=== PATIENT | female | born 1985 | race African-American/Black ===

== ENCOUNTER 2020-01-03 10:11 | Emergency (ER) | payer OTHER ==
[~2020-01-03] VITALS: Ht 160 cm; Wt 73.0 kg
--- NOTE | ~2020-01-03 | EMS ---
[address] [address] EMS Patient Care Report Name: JAIMIE ARBOLEDA Room #: REG Sukumar#: [id number] Admission: 01/03/20 Attend Phys: Discharge: Date of : 83 Report #: [id number] THIS REPORT FOR: //name// Report Transmitted: 01/03/2020 10:50 EMS Care Summary [place], [place]/[facility] Incident [id number] @ 01/03/2020 09:45 Incident Location [address] [place], [place] [id number] Patient JAIMIE MCNEIL Female, 34 Years 1985 Patient Address [address] [place] [id number] Patient History Asthma,Irritable Bowel Syndrome, Patient Allergies No known allergies, Patient Medications Albuterol, Chief Complaint GENERALIZED ABD PAIN Disposition Transported No Lights/[place] Dispatch Reason Abdominal Pain/Problems Transported To [facility] Narrative PT FOUND AMBULATORY. PT STATES SHE HAS GENERALIZED ABD PAIN THAT IS CONSISTENT WITH HER IBS. PT DENIES OTHER COMPLAINTS. PT WEARING COTH MASK ON ARRIVAL AND FOR TRANSPORT. TRASNPORTED WITHOUT INCIDENT. [address] [address] EMS Patient Care Report Name: JAIMIE ARBOLEDA Room #: REG Sukumar#: [id number] Admission: 01/03/20 Attend Phys: Discharge: Date of : 83 Report #: [id number] Initial Vitals @09:55P: 61,R: 18,BP: 133/92,Pain: 10/10,GCS: 15,CO: 6,SpO2: 99,Revised Trauma: 12, Assessments @09:54MENTAL:No Abnormalities,SKIN:No Abnormalities,HEENT:Head/Face: No Abnormalities,Eyes: No Abnormalities,Neck/Airway: No Abnormalities,LUNG SOUNDS:ABDOMEN:PELVIS//GI:EXTREMITIES:PULSE:NEURO:No Abnormalities, Impression Abdominal Pain Procedures @09:54ALS AssessmentResponse: UnchangedSucceeded Timeline 09:44,Call Received 09:44,Dispatch Notified 09:45,Dispatched 09:46,En Route 09:53,On Scene 09:54,At Patient 09:54,ALS Assessment,Response: UnchangedSucceeded, 09:55,BP: 133/92 M,PULSE: 61,RR: 18 R,SPO2: 99 Ox,ETCO2: ,BG: ,PAIN: 10,GCS: 15, 09:56,Depart Scene 10:07,At Destination 10:22,Call Closed Disclaimer v1.1 Copyright 2020 [employer] This EMS Care Summary contains data elements from the applicable legal record (which may be displayed differently). It is designed to provide pertinent information for the following purposes: continuity of care, clinical quality, and state data reporting. The complete legal record is available to ED staff and administrators of the receiving hospital in [employer]'s Patient Tracker. All data is provided "as is."
[~2020-01-03 10:11] MED LIST: ACCUNEB SO1.25 MG/1; ACETAMINOPHEN-120 ML PO; ADULT LOW DOSE81 MG PO; APAP/CODEINE ELI5 ML PO; ASA; BENADRYL25 MG PO; CHILD IBUP100 MG/5 M PO; CIPROFLOXACIN500 M1 PO; DERMOPLAST SPRA56 ML; FLAGYL500 MG PO; FLEXERIL PO; FLINTSTONES T100 MCG PO; IBUPROFEN 800800 M1 PO; IRON; LANOLIN56 GM; PHENERGAN 25 MG25 M1 PO; PHENERGAN 25 MG25 M1 RE; PHENERGAN 25 MG25 MG PO; PROMETHAZINE12.5 M4 RE; PROTONIX40 MG PO; PROVENTIL IH; TUCKS MEDICATE1 EAC1; ULTRAM 50MG TAB50 MG PO; ZOFRAN ODT4 MG PO
[2020-01-03] MEDS ORDERED: PROAIR HFA8.5 GM INH (10:17)
[2020-01-03 11:46] LABS: ABSOLUTE NEUTROPHILS 8.1 thou/uL (1.4-8.2); BASOPHILS 0.4 % (0.0-2.0); EOSINOPHILS 0.9 % (0.0-3.0); HEMATOCRIT 43.2 % (37.0-47.0); HEMOGLOBIN 14.3 gm/dL (12.0-15.0); LYMPHOCYTES 14.5 % (24.0-44.0); MCH 31.4 pg (26.0-34.0); MCHC 33.1 g/dL (28.0-37.0); MONOCYTES 3.2 % (1.0-8.0); PLATELET COUNT 226 thou/uL (150-400); RBC 4.55 mil/uL (4.20-5.00); RDW 12.7 % (10.5-14.5)
[2020-01-03 12:01] LABS: CALCIUM 8.9 mg/dL (8.5-10.1); CREATININE 0.8 mg/dL (0.6-1.0); POTASSIUM 4.2 mmol/L (3.5-5.1)
[2020-01-03 12:07] LABS: ALBUMIN 3.7 g/dL (3.4-5.0); TOTAL BILIRUBIN 0.4 mg/dL (0.2-1.0); TOTAL PROTEIN 6.8 g/dL (6.4-8.2)
[2020-01-03] MEDS ORDERED: REGLAN 10 MG TA10 MG PO (12:14)
[2020-01-03] MEDS ORDERED: BENTYL 20 MG TA20 M1 PO (12:14)
[2020-01-03 12:21] VITALS: BP 125/64
== END 2020-01-03 12:22 | disposition home or self-care (01) ==
LOC: ER 10:11
PROVIDERS: Emergency Medicine
DX: R10.84 Generalized abdominal pain (principal); R11.2 Nausea with vomiting, unspecified; R19.7 Diarrhea, unspecified; J45.909 Unspecified asthma, uncomplicated; Z79.899 Other long term (current) drug therapy; Z88.8 Allergy status to other drugs, medicaments and biological substances

== ENCOUNTER 2020-07-06 09:31 | Emergency (ER) | payer OTHER ==
[~2020-07-06] VITALS: Ht 160 cm; Wt 68.0 kg
[~2020-07-06 09:31] MED LIST changes: +BENTYL 20 MG TA20 M1 PO; +PROAIR HFA8.5 GM INH; +REGLAN 10 MG TA10 MG PO
[2020-07-06 11:26] LABS: URINE BILIRUBIN NEGATIVE (Negative); URINE BLOOD NEGATIVE (Negative); URINE CLARITY SL CLOUDY; URINE COLOR YELLOW; URINE GLUCOSE-RANDOM* NEGATIVE (Negative); URINE KETONES NEGATIVE (Negative); URINE LEUKOCYTES-REFLEX NEGATIVE (Negative); URINE NITRITE-REFLEX NEGATIVE (Negative); URINE PROTEIN (DIPSTICK) TRACE (Negative); URINE SPECIFIC GRAVITY >= 1.030 (1.005-1.035)
[2020-07-06] MEDS ORDERED: PHENERGAN 25 MG25 M1 PO (12:35)
[2020-07-06 12:52] VITALS: BP 136/85
[2020-07-07] MEDS ORDERED: NOHOMEMEDICATIONS (11:31)
[2020-07-07] MEDS ORDERED: ZOFRAN ODT4 MG PO (13:54)
== END 2020-07-06 12:52 | disposition home or self-care (01) ==
LOC: ER 09:31
PROVIDERS: Emergency Medicine
DX: R10.84 Generalized abdominal pain (principal); R11.2 Nausea with vomiting, unspecified; J45.909 Unspecified asthma, uncomplicated; Z79.899 Other long term (current) drug therapy; Z88.8 Allergy status to other drugs, medicaments and biological substances

== ENCOUNTER 2020-07-07 09:49 | Emergency (ER) | payer OTHER ==
[~2020-07-07] VITALS: Ht 160 cm; Wt 64.9 kg
[2020-07-07 11:10] LABS: ABSOLUTE NEUTROPHILS 9.2 thou/uL (1.4-8.2); BASOPHILS 0.3 % (0.0-2.0); HEMOGLOBIN 13.1 gm/dL (12.0-15.0); MCH 31.6 pg (26.0-34.0); MCHC 33.6 g/dL (28.0-37.0); MCV 94.1 fL (80.0-100.0); MONOCYTES 4.4 % (1.0-8.0); POLYS 87.3 % (36.0-66.0); RBC 4.14 mil/uL (4.20-5.00); RDW 12.7 % (10.5-14.5); WBC 10.5 thou/uL (4.0-11.0)
[2020-07-07 11:20] LABS: CALCIUM 9.5 mg/dL (8.5-10.1); CREATININE 0.8 mg/dL (0.6-1.0); POTASSIUM 3.5 mmol/L (3.5-5.1)
[2020-07-07 11:27] LABS: ALBUMIN 4.6 g/dL (3.4-5.0); TOTAL BILIRUBIN 0.6 mg/dL (0.2-1.0)
[2020-07-07] MEDS ORDERED: NOHOMEMEDICATIONS (11:31)
[2020-07-07 11:54] LABS: PLATELET COUNT 227 thou/uL (150-400); PLATELET ESTIMATE NORMAL
[2020-07-07 13:17] LABS: URINE BILIRUBIN NEGATIVE (Negative); URINE BLOOD 1+ (Negative); URINE CLARITY CLEAR; URINE COLOR YELLOW; URINE GLUCOSE-RANDOM* NEGATIVE (Negative); URINE KETONES TRACE (Negative); URINE LEUKOCYTES-REFLEX NEGATIVE (Negative); URINE NITRITE-REFLEX NEGATIVE (Negative); URINE PROTEIN (DIPSTICK) 1+ (Negative); URINE SPECIFIC GRAVITY 1.015 (1.005-1.035)
[2020-07-07 13:27] LABS: CASTS None Seen /LPF (None Seen); SQUAMOUS 0-3 Few /LPF (0-3)
[2020-07-07 13:29] LABS: BACTERIA-REFLEX None Seen /HPF (None Seen); URINE WBC-REFLEX 0-5 Rare /HPF (0-5)
[2020-07-07 13:31] LABS: CRYSTALS None Seen /LPF (None Seen)
[2020-07-07] MEDS ORDERED: ZOFRAN ODT4 MG PO (13:54)
[2020-07-07 13:59] VITALS: BP 144/89
[2020-07-08] MEDS ORDERED: PROAIR HFA8.5 GM INH (04:35)
== END 2020-07-07 14:09 | disposition home or self-care (01) ==
LOC: ER 09:49
PROVIDERS: Emergency Medicine
DX: R10.84 Generalized abdominal pain (principal); R11.2 Nausea with vomiting, unspecified; J45.909 Unspecified asthma, uncomplicated; Z90.49 Acquired absence of other specified parts of digestive tract

== ENCOUNTER 2020-07-08 01:45 | Inpatient (IN) | payer OTHER ==
[2020-07-08] VITALS (7 sets, daily range): BP systolic 141–165; BP diastolic 77–117
[~2020-07-08] VITALS: Ht 160 cm; Wt 68.0 kg
[~2020-07-08 01:45] MED LIST changes: +NOHOMEMEDICATIONS
[2020-07-08 02:46] LABS: ABSOLUTE NEUTROPHILS 8.5 thou/uL (1.4-8.2); BASOPHILS 0.4 % (0.0-2.0); HEMATOCRIT 43.2 % (37.0-47.0); HEMOGLOBIN 14.1 gm/dL (12.0-15.0); LYMPHOCYTES 11.6 % (24.0-44.0); MCHC 32.6 g/dL (28.0-37.0); MCV 94.9 fL (80.0-100.0); MONOCYTES 4.1 % (1.0-8.0); PLATELET COUNT 209 thou/uL (150-400); POLYS 83.9 % (36.0-66.0); RBC 4.55 mil/uL (4.20-5.00); RDW 12.7 % (10.5-14.5); WBC 10.1 thou/uL (4.0-11.0)
[2020-07-08 02:59] LABS: CALCIUM 9.3 mg/dL (8.5-10.1); CREATININE 0.9 mg/dL (0.6-1.0); POTASSIUM 3.8 mmol/L (3.5-5.1)
[2020-07-08 03:04] LABS: TOTAL BILIRUBIN 0.6 mg/dL (0.2-1.0); TOTAL PROTEIN 6.9 g/dL (6.4-8.2)
[2020-07-08] MEDS ORDERED: PROAIR HFA8.5 GM INH (04:35)
--- NOTE | 2020-07-08 06:49 | NUR ---
ASSUMED CARE OF PT FROM ED AT 0505HRS. PT AOX4 AND LETS NEEDS BE KNOWN. PT IS STEADY ON HER FEET. PT COMPLAINED OF NAUSEA AND HAD 1X EMESIS UPON ARRIVAL. PT ALSO COMPLAINED OF ABDOMINAL PAIN. PRN MEDS PROVIDED. ORDERS RECIEVED AND STARTED. PT WAS ORIENTED TO THE UNIT AND HER ROOM. PT WAS ABLE TO ANSWER ALL ADMISSION RELATED QUESTIONS. PT IS NPO. PT HAS ELEVATED BP BUT OTHER VSS. ADMISSION TO BE COMPLETED BY AM RN.
--- NOTE | 2020-07-08 12:30 | NUR ---
Assumed pt care this am, bp elevated d/t nausea and pain. Both are managed with medications partial relief is noted. Alert and oriented x 4, make needs known. Maintained NPO, awaiting for surgical consult.
[2020-07-09 07:48] VITALS: BP 155/90
--- NOTE | 2020-07-09 15:09 | NUR ---
Assumed pt care at 7am.Pt in bed resting.Assessment completed.vss.C/o nausea and abdominal pain rated 8/10.Morphine and reglan ivp given as ordered with relief.Dr Shaffer here,order noted.Pt up to br and took shower after lunch. Family here to visit.Updates given.No verbal c/o at present,pt in bed resting and watching tv. Will continue to monitor.
[2020-07-09 20:18] VITALS: BP 154/85
[2020-07-09 21:45] VITALS: BP 148/93
[2020-07-10 03:30] VITALS: BP 134/84
[2020-07-10 05:01] VITALS: BP 98/65
--- NOTE | 2020-07-10 08:04 | NUR ---
Assumed pt care at 1900. A/OX4, VSS. C/o abd pain/nausea medicated per EMAR with relief reported. Up ad carrie, encouraged to call for help as needed. IVF infusing via LFA w/o any problems voiced. Resting quietly w/o distress noted, call light/personal items within reach.
[2020-07-10 08:38] VITALS: BP 138/92
[2020-07-10] MEDS ORDERED: REGLAN10 MG PO (09:32)
[2020-07-10 10:43] VITALS: BP 138/92
--- NOTE | 2020-07-10 12:12 | NUR ---
PT ADMITTED REALTED TO ABD PAIN; N/V. CM REVIEWED CHART AND SPOKE WITH CARE TEAM. CM CALLED AND SPOKE WITH PT OVET THE PHONE THIS AM. PT APPEARED TRO BE A&O X4. CM ROLE INTRODUCED. PT INDICATED SHE RESIDES IN A HOUSE WITH HER 4 CHILDREN. PT INDICATED NO STEPS TO ENTER AND NO STEPS INSIDE. 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 PT INDICATED SHE LOST JOB BACK IN AUGUST RELATED TO PANDEMIC AND IS CURRENTLY PATIENT PAY. PHYSICIAN INDICATED THAT PT IS MEDICALLY STABLE TO DC HOME THIS DAY. CM PRICED OUT PT'S REGLAN AND PHARMACY STATED $28.87. PT INDICATED SHE WOULD NEED ASSISTANCE PAYING FOR MED. MED TO BE VOUCHERED. PT INDICATED SHE HAD TRNASPORT HOME THIS DAY. [facility].
--- NOTE | 2020-07-10 13:50 | NUR ---
Assumed pt care this am, vs stable, pt is able to tolerated diet that had been advanced to a regualr diet. No pain was noted, nausea and vomiting is resolved, medications given as per emar. IV removed, pt dc, window caser helped pt with medications, is to be picked up at our pharmacy. DC instructions and educations on medications given to the pt. Pt is now dc.
== END 2020-07-10 13:55 | disposition home or self-care (01) | DRG 392 ==
LOC: ER 01:45 → 4W 04:02 → EROBS 04:02 → 4W 05:03
PROVIDERS: Emergency Medicine; ADMIT Hospitalist; ATTEND Hospitalist
DX: R10.9 Unspecified abdominal pain (principal); J45.909 Unspecified asthma, uncomplicated; K58.9 Irritable bowel syndrome, unspecified; F17.210 Nicotine dependence, cigarettes, uncomplicated; Z79.899 Other long term (current) drug therapy; Z90.49 Acquired absence of other specified parts of digestive tract
CPT/HCPCS: 10047

== ENCOUNTER 2020-07-22 12:21 | Emergency (ER) | payer OTHER ==
[~2020-07-22] VITALS: Ht 160 cm; Wt 68.0 kg
[~2020-07-22 12:21] MED LIST changes: +REGLAN10 MG PO
[2020-07-22 13:07] LABS: ABSOLUTE NEUTROPHILS 9.5 thou/uL (1.4-8.2); BASOPHILS 0.5 % (0.0-2.0); EOSINOPHILS 0.5 % (0.0-3.0); HEMATOCRIT 44.1 % (37.0-47.0); HEMOGLOBIN 14.6 gm/dL (12.0-15.0); LYMPHOCYTES 9.4 % (24.0-44.0); MCH 32.1 pg (26.0-34.0); MCHC 33.2 g/dL (28.0-37.0); MCV 96.7 fL (80.0-100.0); MONOCYTES 2.9 % (1.0-8.0); PLATELET COUNT 273 thou/uL (150-400); POLYS 86.7 % (36.0-66.0); RBC 4.57 mil/uL (4.20-5.00); RDW 13.2 % (10.5-14.5); WBC 10.9 thou/uL (4.0-11.0)
[2020-07-22 13:08] LABS: CALCIUM 9.3 mg/dL (8.5-10.1); CREATININE 0.8 mg/dL (0.6-1.0); POTASSIUM 3.8 mmol/L (3.5-5.1)
[2020-07-22 13:15] LABS: ALBUMIN 4.1 g/dL (3.4-5.0); TOTAL BILIRUBIN 0.5 mg/dL (0.2-1.0); TOTAL PROTEIN 7.2 g/dL (6.4-8.2)
[2020-07-22] MEDS ORDERED: LEVSIN0.125 MG PO (14:30)
[2020-07-22] MEDS ORDERED: PHENERGAN 25 MG25 M1 PO (14:30)
[2020-07-22] MEDS ORDERED: NORCO5 PO (14:30)
[2020-07-22] MEDS ORDERED: SENNA PLUS TAB1 EACH PO (14:31)
[2020-07-22 14:43] VITALS: BP 163/109
[2020-07-23] MEDS ORDERED: HALDOL 0.5 MG0.5 M1 PO (00:38)
== END 2020-07-22 14:45 | disposition home or self-care (01) ==
LOC: ER 12:21
PROVIDERS: Physician Assistant
DX: K58.9 Irritable bowel syndrome, unspecified (principal); R11.2 Nausea with vomiting, unspecified; R19.7 Diarrhea, unspecified; J45.909 Unspecified asthma, uncomplicated; Z86.718 Personal history of other venous thrombosis and embolism; Z90.89 Acquired absence of other organs; Z98.51 Tubal ligation status; Z79.899 Other long term (current) drug therapy

== ENCOUNTER 2020-07-22 22:54 | Emergency (ER) | payer OTHER ==
[~2020-07-22] VITALS: Ht 160 cm; Wt 68.0 kg
[~2020-07-22 22:54] MED LIST changes: +LEVSIN0.125 MG PO; +NORCO5 PO; +SENNA PLUS TAB1 EACH PO
[2020-07-23] MEDS ORDERED: HALDOL 0.5 MG0.5 M1 PO (00:38)
[2020-07-23 00:51] VITALS: BP 112/68
== END 2020-07-23 00:50 | disposition home or self-care (01) ==
LOC: ER 22:54
DX: F12.10 Cannabis abuse, uncomplicated (principal); R11.2 Nausea with vomiting, unspecified; R10.33 Periumbilical pain; J45.909 Unspecified asthma, uncomplicated; Z90.49 Acquired absence of other specified parts of digestive tract; Z98.51 Tubal ligation status; Z90.89 Acquired absence of other organs; Z86.718 Personal history of other venous thrombosis and embolism; Z79.899 Other long term (current) drug therapy

== ENCOUNTER 2020-12-28 23:38 | Emergency (ER) | payer OTHER ==
[~2020-12-28] VITALS: Ht 160 cm; Wt 68.0 kg
[~2020-12-28 23:38] MED LIST changes: +HALDOL 0.5 MG0.5 M1 PO
[2020-12-29] MEDS ORDERED: IBUPROFEN 600600 M1 PO (02:19)
[2020-12-29] MEDS ORDERED: VALIUM2 MG PO (02:19)
[2020-12-29 02:35] VITALS: BP 132/68
== END 2020-12-29 02:35 | disposition home or self-care (01) ==
LOC: ER 23:38
DX: M62.830 Muscle spasm of back (principal); J45.909 Unspecified asthma, uncomplicated; Z90.49 Acquired absence of other specified parts of digestive tract; Z98.51 Tubal ligation status; Z90.89 Acquired absence of other organs

== ENCOUNTER 2021-04-19 12:36 | Emergency (ER) | payer OTHER ==
[~2021-04-19] VITALS: Ht 160 cm; Wt 72.6 kg
[~2021-04-19 12:36] MED LIST changes: +IBUPROFEN 600600 M1 PO; +VALIUM2 MG PO
[2021-04-19 16:55] LABS: ABSOLUTE NEUTROPHILS 4.4 thou/uL (1.4-8.2); BASOPHILS 0.5 % (0.0-2.0); HEMATOCRIT 46.9 % (37.0-47.0); HEMOGLOBIN 15.7 gm/dL (12.0-15.0); LYMPHOCYTES 26.7 % (24.0-44.0); MCH 32.1 pg (26.0-34.0); MCHC 33.4 g/dL (28.0-37.0); MCV 96.1 fL (80.0-100.0); MONOCYTES 5.4 % (1.0-8.0); PLATELET COUNT 255 thou/uL (150-400); POLYS 65.4 % (36.0-66.0); RBC 4.88 mil/uL (4.20-5.00); RDW 13.1 % (10.5-14.5); WBC 6.7 thou/uL (4.0-11.0)
[2021-04-19 17:05] LABS: CALCIUM 9.1 mg/dL (8.5-10.1); POTASSIUM 3.5 mmol/L (3.5-5.1)
[2021-04-19 17:11] LABS: TOTAL BILIRUBIN 0.5 mg/dL (0.2-1.0); TOTAL PROTEIN 7.4 g/dL (6.4-8.2)
[2021-04-19 20:41] LABS: URINE BILIRUBIN NEGATIVE (Negative); URINE BLOOD 3+ (Negative); URINE CLARITY CLEAR; URINE COLOR YELLOW; URINE GLUCOSE-RANDOM* NEGATIVE (Negative); URINE KETONES NEGATIVE (Negative); URINE LEUKOCYTES-REFLEX NEGATIVE (Negative); URINE NITRITE-REFLEX NEGATIVE (Negative); URINE PROTEIN (DIPSTICK) NEGATIVE (Negative); URINE SPECIFIC GRAVITY <= 1.005 (1.005-1.035); URINE UROBILINOGEN 0.2 E.U./dl (0.2-1.0)
[2021-04-19 20:52] LABS: AMP/METHAMP Negative (Negative); BARBITURATES Negative (Negative); BENZODIAZEPINES Negative (Negative); COCAINE POSITIVE (Negative); METHADONE Negative (Negative); OPIATES Negative (Negative); PCP Negative (Negative)
[2021-04-19 20:56] LABS: BACTERIA-REFLEX None Seen /HPF (None Seen); CASTS None Seen /LPF (None Seen); CRYSTALS None Seen /LPF (None Seen); SQUAMOUS 0-3 Few /LPF (0-3); URINE RBC 1-2 Rare /HPF (NONE SEEN); URINE WBC-REFLEX 0-5 Rare /HPF (0-5)
[2021-04-19 21:19] VITALS: BP 124/68
== END 2021-04-19 21:30 | disposition home or self-care (01) ==
LOC: ER 12:36
PROVIDERS: Physician Assistant
DX: T76.21XA Adult sexual abuse, suspected, initial encounter (principal); J45.909 Unspecified asthma, uncomplicated; F12.90 Cannabis use, unspecified, uncomplicated; Z90.49 Acquired absence of other specified parts of digestive tract; Z90.89 Acquired absence of other organs; Z86.718 Personal history of other venous thrombosis and embolism; Z79.891 Long term (current) use of opiate analgesic; Z79.899 Other long term (current) drug therapy; Z79.51 Long term (current) use of inhaled steroids; Z79.1 Long term (current) use of non-steroidal anti-inflammatories (NSAID); Z77.22 Contact with and (suspected) exposure to environmental tobacco smoke (acute) (chronic)